=== PATIENT | male | born 1940 | race Hispanic/Latino ===

== ENCOUNTER 2019-08-06 08:07 | Day surgery (SDC) | payer MEDICARE ==
--- NOTE | 2019-08-01 17:01 | RAD REPORT ---
EXAM DESCRIPTION: Reji Zimmer (2 Views)08/01/2019 4:42 pm CLINICAL HISTORY: Preop for hernia surgery COMPARISON: 2014 FINDINGS: The lungs appear clear of acute infiltrate. The heart is normal size IMPRESSION: No acute abnormalities displayed
[2019-08-01 18:09] LABS: Basophils % 0.8 % (0-1.3); Hematocrit 37.9 % (39.6-49.0); Lymphocytes % 28.9 % (15.3-44.8); RBC Red Blood Cell Count 3.79 M/uL (4.33-5.43)
[2019-08-01 18:45] LABS: Potassium 4.1 mmol/L (3.5-5.1)
[2019-08-01 20:12] LABS: Blood Morphology Comment NOT SEEN (NOT SEEN); Platelet Estimate ADEQ
--- NOTE | 2019-08-02 08:52 | EKG ---
Test Date: 2019-08-01 Test Time: 16:39:30 Bench Boring Machine Operator: SILVIO MEASUREMENT RESULTS: Intervals: Rate: 63 [place]: 148 QRSD: 146 QT: 444 QTc: 454 [place]: P: 42 [place]: 148 QRS: -86 T: -39 INTERPRETIVE STATEMENTS: Normal sinus rhythm Left axis deviation Right bundle branch block Abnormal ECG Compared to ECG 03/18/2005 09:22:00 Left-axis deviation now present Electronically Signed On 08-02-19 08:50:38 CDT by Jalen Maria
--- OUTSIDE RECORDS SUMMARY | 2019-08-06 08:16 | XMS REPORT ---
:1940 Author Organization [employer]Works Care Team Providers Name Role Phone Charity Hollins Provider Role Unavailable Allergies No Known Allergies Problems Problem Type Condition Code Onset Dates Condition Status Problem Erectile dysfunction due to diseases N52.1 Active classified elsewhere Problem Type 2 diabetes mellitus with other E11.69 Active specified complication Medications No Known Medications Results No Known Results Summary Purpose eClinicalWorks Submission
--- OUTSIDE RECORDS SUMMARY | 2019-08-06 08:16 | XMS REPORT ---
:1940 Author Organization [employer] Care Team Providers Name Role Phone FourcheCharity borja Provider Role Unavailable Allergies, Adverse Reactions, Alerts Substance Reaction Event Type N.K.D.A. 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, sequela Assessment Elevated PSA R97.20 Active Assessment Erectile dysfunction due to N52.1 Active diseases classified elsewhere Medications Medication Code Code Instructions Start End Status Dosage System Date Date Levemir [facility] 80871518522 100 UNIT/ML Active as FlexTouch Subcutaneous directed Lisinopril [facility] 02089329638 10 MG Orally Active 1 tablet Once a day GlipiZIDE [facility] 78607054233 5 MG Orally Active 1/2 Tablet Once a day BD Pen Needle [facility] 91952437855 32G X 4 MM Active as Zaynab 2nd Gen directed Timolol Maleate [facility] [address]-45 0.5 % Active 1 drop PF Ophthalmic Once into a day affected eye atorvastatin ND 52281750535 20mg Active 1 tablet by mouth at bedtime Metformin HCl ND 48698945779 1000 MG Orally Active 1 tablet Once a day with a meal Results No Known Results Summary Purpose eClinicalWorks Submission
--- OUTSIDE RECORDS SUMMARY | 2019-08-06 08:16 | XMS REPORT ---
:1940 Author Organization eClinicalWorks Care Team Providers Name Role Phone Dustin Pepper Provider Role Unavailable Allergies, Adverse Reactions, Alerts [...] Start End Status Dosage System Date Date BD Pen Needle [facility] 49235819710 32G X 4 MM Active as Zaynab 2nd Gen directed Timolol Maleate [facility] [address]-33 0.5 % Active 1 drop PF Ophthalmic Once into a day affected eye atorvastatin ND 99415075821 20mg Active 1 tablet by mouth at bedtime Levemir ND 48089060766 100 UNIT/ML Active as FlexTouch Subcutaneous directed Lisinopril ND 51036937624 10 MG Orally Active 1 tablet Once a day GlipiZIDE [facility] 50587172431 5 MG Orally Active 1/2 Tablet Once a day Metformin HCl ND 00451287658 1000 MG Orally Active 1 tablet Once a day with a meal Results No Known Results Summary Purpose eClinicalWorks Submission
[2019-08-06] MEDS ORDERED: NA CHLORIDE 0.9% 1,000 ML ONE ×2 (08:52→13:31)
[2019-08-06] MEDS ORDERED: CEFAZOLIN/SWI 1gm 1 GM/10 ML SYR ONE (08:52)
[2019-08-06] MEDS ORDERED: MIDAZOLAM HCL 2 MG/2 ML INJ ONE (10:29)
[2019-08-06] MEDS ORDERED: FENTANYL CITR 250 MCG/5 ML ONE (10:50)
[2019-08-06] MEDS ORDERED: LIDOCAINE 2% MPF 5 ML VIAL ONE (10:50)
[2019-08-06] MEDS ORDERED: propofoL 200 MG/20 ML VIAL IV ONE (10:50)
[2019-08-06] MEDS ORDERED: ROCURONIUM 50 MG/5 ML VIAL IV ONE (10:50)
[2019-08-06] MEDS ORDERED: dexAMETHasone 10 MG/ML VIAL ONE (10:50)
[2019-08-06] MEDS ORDERED: EPHEDRINE SULF 50 MG/ML VIAL ONE (11:16)
[2019-08-06] MEDS ORDERED: KETOROLAC 30 MG/ML INJ ONE (11:42)
--- NOTE | 2019-08-06 11:53 | P.BOP ---
Preoperative diagnosis: tender right inguinal hernia, tender umbilical hernia Postoperative diagnosis: SAME Primary procedure: 1. Open repair of tender right inguinal hernia with mesh Secondary procedure: 2. Open repair of tender umbilical hernia Community Product Specialist: Juana Laurent) Estimated blood loss: <10cc Specimen: hernia sac , lipoma of cord Findings: see dictation Anesthesia: General Complications: None Implants: medium mesh plug and sheet. Transferred to: Recovery Room
[2019-08-06 12:36] VITALS: O2SAT 98
[2019-08-06 14:34] VITALS: BP 115/78; TEMP 98.1
--- NOTE | 2019-08-06 22:34 | DS ---
Date of Discharge: 08/06/2019 Diagnoses: Right inguinal hernia and umbilical hernia. Procedures: Open repair of tender right inguinal hernia with mesh, open repair of tender umbilical h ernia. Disposition: Home. Activity: As tolerated. No heavy lifting. Followup: Follow up in my office in 1 week. Call for appointment at [phone]. Instructions: Keep the area dry for 48 hours and may shower. Medications: Include Tylenol No. 3 q.4 hours p.r.n. pain. CHRISTINE/JUD Voice ID: [id number] Report ID: [id number]
--- NOTE | 2019-08-06 22:34 | OP ---
Date of Procedure: 08/06/2019 Surgeon: Paras Abdi MD Diagnoses: Tender right inguinal hernia and tender umbilical hernia. Postoperative Diagnoses: Tender right inguinal hernia and tender umbilical hernia. Procedure: 1.Open repair of tender right inguinal hernia with mesh. 2.Open repair of tender umbilical hernia. Specimen: Hernia sac and lipoma of the cord and hernia sac from the inguinal area and from the umbil ical area and lipoma of the cord from the inguinal area. Anesthesia: General plus local. Findings: Patient has right inguinal hernia and also umbilical hernia. The right inguinal hernia sa c could not be done laparoscopically safely due to previous scar tissue present. Complication: None. Indication: This is the case of a 79-year-old patient, comes to us with 2 hernias, right inguinal an d also umbilical hernia. The benefits, alternatives, and risks of laparoscopic versus open repair of right inguinal hernia and open repair of umbilical hernia fully explained to the patient, which incl ude but are not limited to infection, bleeding, damage to adjacent structures as complication, nonhea ling wound, chronic pain, chronic numbness, [place], and even . He also understands this may not rel ieve any symptoms. He might need more than one surgical intervention. He also was explained the nee d most likely use of mesh in the inguinal region. Pros and cons of mesh placement were placed. We d iscussed with the patient and he after hearing the pros and cons, and after answering his questions t o his satisfaction then he did consent for use of mesh. Description Of Procedure: The patient brought to the operating room, placed in supine position. Ane sthesia was done without complication. A time-out was called. The abdomen and inguinal areas were p repped and draped in a sterile fashion. We started first with the inguinal region. We have a prosth etic on the left inguinal region more than 20 years ago. It was reviewed on the CAT scan. Discussed with the urologist and it should be okay to fix the right inguinal hernia since this was large and w as allowing intestines to come in and out. Now, we made an incision in the umbilical region. An inc ision was carried down to anterior rectus sheath. It was opened. The muscle retracted laterally. T he balloon catheter was placed in the area under direct visualization with the camera and we proceede d to inflate the balloon, but we noticed that the peritoneum was too tight. They were half previous surgery although this opposite side still effecting the right side. So at this moment, we will leave it safe to continue laparoscopically so we proceeded to remove the trocars under direct visualizatio n of the area and then closed the anterior rectus sheath that. Then, we proceeded to make an incisio n in the right inguinal region. Incision was carried down to Diana fascia. External oblique aponeu rosis was identified, opened in direction of the fibers to connect to the superficial inguinal ring. The external oblique aponeurosis once open we identified ilioinguinal nerve, iliohypogastric nerve p rotected behind external oblique aponeurosis. Patient was in Trendelenburg position. The [place] wi ll place around the spermatic cord. We identified the hernia sac and carefully identified the hernia sac up to the roots in the deep inguinal ring. Opened no incarcerated bowel, large hernia sac but i t was twist and suture ligated twice with 2-0 Prolene. The vas deferens and the rest of the structur es were protected at all times. We placed a mesh plug sheet on the deep inguinal ring and secured in place with VersaTack, once again, protecting the spermatic cord structures. After that, the patient mesh sheet on the floor of the canal securing that to the pubic tubercle, shelving edge of the ingui nal ligament, and transversalis fascia and the tail was looped around the spermatic cord without stra ngulation. The area was irrigated. At that moment, I proceeded to bring in the inguinal nerve, ilio hypogastric nerve back into the inguinal canal, reconstructed the superficial inguinal ring and close d the external oblique aponeurosis with Prolene making sure the nerves were not included. The area w as irrigated. The Diana's fascia closed with 3-0 chromic and the skin with carolyn. Sponge count a nd instrument counts were correct. At that moment, we went to the umbilical region. Patient has no other hernia in that area. We are trying to use the umbilical incision usually used to obtain laparo scopic and made an extended incision to the umbilical area. We identified the hernia sac removed it from umbilical skin. Umbilical skin was then ligated. The fascia edges were cleaned and then we pro ceeded to close this with multiple sutures of 2-0 Prolene. Patient tolerated the procedure well. Th e skin was closed first with 3-0 chromic in the subcutaneous tissue, and the skin with carolyn. Spon ge count and instrument counts were correct. At the end of the case, testicles were in the scrotum. Patient tolerated procedure well. Patient was sent to recovery in stable condition. CHRISTINE/JUD Voice ID: [id number] Report ID: [id number]
== END 2019-08-06 14:25 | disposition home or self-care (01) ==
LOC: OR 08:07
PROVIDERS: ATTEND Surgery
PROC: 0YU50JZ Supplement Right Inguinal Region with Synthetic Substitute, Open Approach (ICD-10-PCS; principal; 2019-08-06 11:15)
PROC: 0WQF0ZZ Repair Abdominal Wall, Open Approach (ICD-10-PCS; 2019-08-06 11:15)
DX: K40.90 Unilateral inguinal hernia, without obstruction or gangrene, not specified as recurrent (principal); K42.9 Umbilical hernia without obstruction or gangrene; E11.9 Type 2 diabetes mellitus without complications; I10 Essential (primary) hypertension; Z79.4 Long term (current) use of insulin; Z87.891 Personal history of nicotine dependence
CPT/HCPCS: 49505; 49585; 93005; 85025; 80048; 36415; 82947; 88302; 71046; J2704; J2250; J3010; J1100; J0690; J7030 ×2

== ENCOUNTER 2022-07-09 19:28 | Emergency (ER) | payer OTHER ==
--- OUTSIDE RECORDS SUMMARY | 2022-07-09 19:32 | XMS REPORT | Continuity of Care Document ---
:1940 Author Organization [facility] t Address [address] [place] [address] Care Team Providers Name Role Phone Isidro [place] Attending Clinician Unavailable Payers Payer Name Policy Type Policy Number Effective Date Expiration Date S babatunde AARP Medicare 53 [id number] Common Spir it Complete - [facility] Problems Condition Condition Condition Status Onset Resolution Last Treating Co mments Source Name Details Category Date Date Treatment Clinician Date [id number] Erectile Problem Active Comm on dysfunctio Spirit n due to - [facility] diseases [facility] [id number] Type 2 Problem Active Common diabetes Spirit mellitus - [facility] with other [facility] complicati [facility] on Center Allergies, Adverse Reactions, Alerts This patient has no known allergies or adverse reactions. Social History Social Habit Start Date Stop Date Quantity Comments Source History of Tobacco Use Co mmon [facility] Sex Assigned At Com mon [facility] Smoking Status Start Date Stop Date Source Former Smoker 2021-05-07 00:00:00 2021-05-07 00:00:00 Common S pirit [facility] Medications Ordered Filled Start Stop Current Ordering Indication Dosage Frequency Signature Comments Components Source Medication Medication Date Date Medication? Clinician (SIG) Name Name Levemir Levemir Yes Dustin as Common FlexTouch FlexTouch [place] directed [facility] Lisinopril Lisinopril Yes Dustin 1 tablet Common [place] [facility] GlipiZIDE GlipiZIDE Yes Dustin 1/2 Tablet Common [place] [facility] BD Pen BD Pen Yes Dustin as Common Needle Zaynab Needle Zaynab Evgeny directed Spirit 2nd Gen 2nd Gen - [facility] Timolol Timolol Yes Dustin 1 drop Comm on Maleate PF Maleate PF [place] into S pirit affected [facility] eye [facility] atorvastati atorvastati Yes Dustin 1 tablet Common n n Evgeny by mouth Spirit at bedtime [facility] Metformin Metformin Yes Dustin 1 tablet Common HCl HCl Evgeny with a Spirit meal [facility] Levemir Levemir No Levemir FlexTouch FlexTouch FlexTouch 100 UNIT/ML 100 UNIT/ML 100 UNIT/ML BD Pen BD Pen No BD Pen Needle Zaynab Needle Zaynab Needle 2nd Gen 32G 2nd Gen 32G Zaynab 2nd X 4 MM X 4 MM Gen 32G X 4 MM GlipiZIDE 5 GlipiZIDE 5 No QD GlipiZIDE MG MG 5 MG metFORMIN metFORMIN No 1{table QD metFORMIN HCl 1000 MG HCl 1000 MG t_with_ HCl 1000 a_meal} MG Lisinopril Lisinopril No 1{table QD Lisinopril 10 MG 10 MG t} 10 MG atorvastati atorvastati No atorvastat n 20mg n 20mg in 20mg Timolol Timolol No 1{drop_ QD Timolol Maleate PF Maleate PF into_af Maleate PF 0.5 % 0.5 % fected_ 0.5 % eye} Vital Signs Vital Name Observation Time Observation Value Comments Source height 2021-05-07 09:30:00 70 [in_i] [facility] weight 2021-05-07 09:30:00 165.2 [lb_av] [facility] temperature 2021-05-07 09:30:00 97.6 [degF] [facility] bmi 2021-05-07 09:30:00 23.7 kg/m2 [facility] oximetry 2021-05-07 09:30:00 98 % [facility] respiratory rate 2021-05-07 09:30:00 18 /min Comm on [facility] blood pressure 2021-05-07 09:30:00 129 mm[Hg] Common [facility] - systolic [facility] blood pressure 2021-05-07 09:30:00 62 mm[Hg] Common [facility] - diastolic [facility] Procedures This patient has no known procedures. Encounters Start End Encounter Admission Attending Care Care Encounter Source Date/Time Date/Time Type Type Clinicians Facility Department ID 2021-06-17 Outpatient [place], STLMLC STLMLC [id number] Common 14:25:12 Isidro [id number] [facility] 2021-05-07 2021-05-07 [id number] Co mmon 00:00:00 00:00:00 VISIT NEW Spir it PT LEVEL 2 [facility] 2019-06-25 2019-06-25 [place] [id number] Common 10:57:00 10:57:00 t Specialty/U Sp oneyda Specialty rology - [facility] /[facility] 2019-06-19 2019-06-19 [id number] Common 14:10:00 14:10:00 t Specialty/U Sp oneyda Specialty rology - [facility] 2019-06-12 2019-06-12 [facility] [place] [id number] Common 08:45:00 08:45:00 t Specialty/U Sp oneyda Specialty rology - [facility] /[facility] 2019-04-17 2019-04-17 [id number] Common 13:43:00 13:43:00 t Specialty/U Sp oneyda Specialty rology - [facility] /[facility] 2019-04-16 2019-04-16 [facility] [place] [id number] Common 09:30:00 09:30:00 t Specialty/U Sp oneyda Specialty rology - [facility] /Urology Clinic [facility] Results This patient has no known results.
--- NOTE | 2022-07-09 20:40 | ER ---
Nurse's Notes [facility] Name: Austyn Prajapati Age: 82 yrs Sex: Male : 1940 Arrival Date: 07/09/2022 Time: 19:33 Bed 3 [facility] MD: Diagnosis: Presentation: 07/09 20:00 Chief complaint: Patient left the lobby. bb ED Course: 19:33 Patient arrived in ED. jj6 19:43 Anne [place] MD is Attending Physician. sd2 20:38 Patient's name was called from ER lobby. No response. Unable to locate patient. Will bb disposition as left without being seen by a provider. Administered Medications: No medications were administered Outcome: 20:39 Patient left the ED. bb Signatures: Rupinder Sullivan, RN RN Coco Smith jj6 Anne [place] MD MD sd2
== END 2022-07-09 20:39 | disposition left against medical advice (07) ==
LOC: ER 19:28
DX: Z53.21 Procedure and treatment not carried out due to patient leaving prior to being seen by health care provider (principal)
CPT/HCPCS: 99281

== ENCOUNTER 2022-10-31 21:26 | Inpatient (IN) | payer OTHER ==
--- OUTSIDE RECORDS SUMMARY | 2022-10-31 21:29 | XMS REPORT | Continuity of Care Document ---
:1940 Author Organization [facility] t Address [address] [place] [address] Care Team Providers Name Role Phone Isidro [place] Attending Clinician Unavailable Payers Payer Name Policy Type Policy Number Effective Date Expiration Date S babatunde AARP Medicare 53 [id number] Common Spir it Complete [facility] Problems Condition Condition Condition Status Onset Resolution Last Treating Co mments Source Name Details Category Date Date Treatment Clinician Date [id number] Erectile Problem Active Comm on dysfunctio Spirit n due to - [facility] diseases [facility] [id number] Type 2 Problem Active Common diabetes Spirit mellitus - [facility] with other [facility] complicati Medica [facility] on Center Allergies, Adverse Reactions, Alerts This patient has no known allergies or adverse reactions. Social History Social Habit Start Date Stop Date Quantity Comments Source History of Tobacco Use Co mmon [facility] Sex Assigned At Com mon [facility] Smoking Status Start Date Stop Date Source Former Smoker 2021-05-07 00:00:00 2021-05-07 00:00:00 Common S pirit [facility] Medications Ordered Filled Start Stop Current Ordering Indication Dosage Frequency Signature Comments Components Source Medication Medication Date Date Medication? Clinician (SIG) Name Name Levemir Levemir Yes Dustin as Common FlexTouch FlexTouch [place] directed [facility] Lisinopril Lisinopril Yes Dustin 1 tablet Common [place] Spirit [facility] GlipiZIDE GlipiZIDE Yes Dustin 1/2 Tablet Common Evgeny Spirit [facility] BD Pen BD Pen Yes Dustin as Common Needle Zaynab Needle Zaynab Evgeny directed Spirit 2nd Gen 2nd Gen - [facility] Timolol Timolol Yes Dustin 1 drop Comm on Maleate PF Maleate PF Evgeny into S pirit affected [facility] eye [facility] atorvastati atorvastati Yes Dustin 1 tablet Common n n [place] by mouth Spirit at bedtime [facility] Metformin Metformin Yes Dustin 1 tablet Common HCl HCl Evgeny with a Spirit meal [facility] Levemir Levemir No Levemir FlexTouch FlexTouch FlexTouch [...] Comments Source height 2021-05-07 09:30:00 70 [in_i] [facility] weight 2021-05-07 09:30:00 165.2 [lb_av] [facility] temperature 2021-05-07 09:30:00 97.6 [degF] [facility] bmi 2021-05-07 09:30:00 23.7 kg/m2 [facility] oximetry 2021-05-07 09:30:00 98 % [facility] respiratory rate 2021-05-07 09:30:00 18 /min Comm on [facility] blood pressure 2021-05-07 09:30:00 129 mm[Hg] Common [facility] - systolic [facility] blood pressure 2021-05-07 09:30:00 62 mm[Hg] Common [facility] - diastolic [facility] Procedures This patient has no known procedures. Encounters Start End Encounter Admission Attending Care Care Encounter Source Date/Time Date/Time Type Type Clinicians Facility Department ID 2021-06-17 Outpatient [place], STLMLC STLMLC [id number] Common 14:25:12 Isidro [id number] [facility] 2021-05-07 2021-05-07 [facility] [id number] Co mmon 00:00:00 00:00:00 VISIT NEW Spir it PT LEVEL 2 [facility] 2019-06-25 2019-06-25 Outpatient [facility] [id number] Common 10:57:00 10:57:00 t Specialty/U Sp oneyda Specialty rology - [facility] /[facility] 2019-06-19 2019-06-19 [id number] Common 14:10:00 14:10:00 t Specialty/U Sp oneyda Specialty rology - [facility] /[facility] 2019-06-12 2019-06-12 [facility] [place] [id number] Common 08:45:00 08:45:00 t Specialty/U Sp oneyda Specialty rology - [facility] /[facility] 2019-04-17 2019-04-17 [id number] Common 13:43:00 13:43:00 t Specialty/U Sp oneyda Specialty rology - [facility] 2019-04-16 2019-04-16 [facility] [place] [id number] Common 09:30:00 09:30:00 t Specialty/U Sp oneyda Specialty rology - [facility] /Urology Clinic [facility] Results This patient has no known results.
--- NOTE | 2022-10-31 22:24 | RAD REPORT ---
EXAM DESCRIPTION: Reji Single View10/31/2022 10:02 pm CLINICAL HISTORY: cough COMPARISON: 2019 FINDINGS: Left upper lobe is hazy. Right lung appears clear. Heart is normal size IMPRESSION: Left upper lobe is hazy which could be secondary to overlying soft tissue as the patient is rotated. An infiltrate or nodule is another consideration. CT chest is recommended
[2022-10-31] MEDS ORDERED: CEFTRIAXONE 1000 MG/VIAL ONE (22:31)
[2022-10-31] MEDS ORDERED: NA CHLORIDE 0.9% 1,000 ML ONE (22:31)
[2022-10-31] MEDS ORDERED: ACETAMINOPHEN 500 MG TAB ONE (22:31)
[2022-10-31 22:38] LABS: Absolute Lymphocytes (CBC) 1.2 K/uL (0.7-4.9); Hematocrit 34.5 % (39.6-49.0); Lymphocytes % 7.8 % (15.3-44.8); MCV 99.8 fL (80-100); MPV 6.8 fL (7.6-11.3); RBC Red Blood Cell Count 3.45 M/uL (4.33-5.43)
[2022-10-31 22:43] LABS: Protime INR 1.14
[2022-10-31 22:49] LABS: Albumin 3.5 g/dL (3.4-5.0); Bilirubin Total 0.5 mg/dL (0.2-1.0); Potassium 4.5 mEq/L (3.5-5.1); Protein, Total 7.7 g/dL (6.4-8.2)
[2022-10-31 22:53] LABS: SARS-CoV-2 Antigen Rapid Res Negative (Negative)
[2022-11-01 00:10] LABS: Renal Epithelial <5 /HPF (None Seen); Specific Gravity 1.017 (1.005-1.030); Urine Bacteria None Seen /HPF (<20); Urine Bilirubin NEGATIVE (Negative); Urine Blood 2+ (Negative); Urine Clarity Extremely Turbid (Clear); Urine Color Light-Yellow (Yellow); Urine Glucose 3+ (Negative); Urine Mucus 1+ /HPF (None Seen); Urine Protein 1+ (Negative); Urine RBC >50 /HPF (None Seen); Urine Urobilinogen Normal (Normal); Urine WBC Clump Rare /HPF (None Seen); Urine pH 5.5 (5.0-7.0)
--- NOTE | 2022-11-01 00:50 | ER ---
Nurse's Notes [facility] Name: Austyn Prajapati Age: 82 yrs Sex: Male : 1940 Arrival Date: 10/31/2022 Time: 21:26 Bed 19 Private MD: Diagnosis: UTI/ Urinary tract infection, site not specified;Sepsis, unspecified organism Presentation: 10/31 21:57 Chief complaint: Spouse and/or significant other states: fever, increased confusion and lg3 weakness starting this morning. denies pain. Coronavirus screen: Client denies travel out of the [place] in the last 14 days. Client presents with at least one sign or symptom that may indicate coronavirus-19. Standard/surgical mask placed on the client. Ebola Screen: No symptoms or risks identified at this time. No acute neurological deficit is noted. Initial Sepsis Screen: Does the patient meet any 2 criteria? Temp <36.0*C (96.8*F)) or > 38.3*C (100.9*F). Altered Mental Status. Yes Does the patient have a suspected source of infection? No. Patient's initial sepsis screen is negative. Risk Assessment: Do you want to hurt yourself or someone else? Patient reports no desire to harm self or others. Onset of symptoms was October 31, 2022. 21:57 Method Of Arrival: Wheelchair lg3 21:57 Acuity: PARVIN 3 lg3 Triage Assessment: 22:04 General: Appears in no apparent distress. comfortable, Behavior is calm, cooperative. lg3 Pain: Denies pain. EENT: No deficits noted. No signs and/or symptoms were reported regarding the EENT system. Neuro: No deficits noted. Epstien Agitation-Sedation Scale (RASS): 0 - Alert and Calm Level of Consciousness is awake, alert, obeys commands, Oriented to person, place, situation. Cardiovascular: No deficits noted. Denies chest pain, shortness of breath, Capillary refill < 3 seconds Clubbing of nail beds is absent JVD is absent Patient's skin is warm and dry. Respiratory: No deficits noted. Airway is patent Respiratory effort is even, unlabored, Respiratory pattern is regular, symmetrical. GI: No deficits noted. No signs and/or symptoms were reported involving the gastrointestinal system. Abdomen is flat, non-distended. : No deficits noted. No signs and/or symptoms were reported regarding the genitourinary system. Derm: No signs and/or symptoms reported regarding the dermatologic system. Skin is intact, is thin, Skin is dry, Skin is normal, Skin temperature is hot. Musculoskeletal: Parent/caregiver report the patient having generalized weakness. Historical: - Allergies: 22:04 No Known Allergies; lg3 - PMHx: 22:04 Dementia; diabetes mellitus; lg3 - PSHx: 22:04 None; lg3 - Immunization history:: Adult Immunizations up to date, Client reports receiving the 2nd dose of the Covid vaccine. - Social history:: Smoking status: Patient denies any tobacco usage or history of. Patient/guardian denies using alcohol, street drugs. Screenin:06 [facility] ED Fall Risk Assessment (Adult) History of falling in the last 3 months, lg3 including since admission No falls in past 3 months (0 pts). Abuse screen: Denies threats or abuse. Denies injuries from another. Nutritional screening: No deficits noted. Tuberculosis screening: No symptoms or risk factors identified. Assessment: 22:05 General: see triage assessment . lg3 22:57 Reassessment: Patient appears in no apparent distress at this time. No changes from lg3 previously documented assessment. Patient and/or family updated on plan of care and expected duration. Pain level reassessed. Patient is alert, oriented x 3, equal unlabored respirations, skin warm/dry/pink. Patient denies pain at this time. /12 00:18 Reassessment: Patient appears in no apparent distress at this time. No changes from lg3 previously documented assessment. Patient and/or family updated on plan of care and expected duration. Pain level reassessed. Patient is alert, oriented x 3, equal unlabored respirations, skin warm/dry/pink. Patient denies pain at this time. 01:11 General: Son: Jarad Prajapati [phone] : Adore Prajapati [phone] Son: Payam Prajapati [facility] [phone]. 07:10 Reassessment: patient had multiple blankets on when assessing vitals. nurse removed ap3 blanket and left patient with loose sheet. 07:42 General: nurse attempted report. was informed the receiving nurse would return my call. ap3 08:20 General: report given to NICOLE Victor. ap3 Vital Signs: 10/31 21:57 BP 131 / 62; Pulse 87; Resp 19 S; Temp 102(O); Pulse Ox 98% on R/A; Weight 79.38 kg lg3 (R); Height 5 ft. 9 in. (R); 22:57 BP 134 / 63; Pulse 83; Resp 20 S; Pulse Ox 98% on R/A; lg3 23:59 Temp 100; lg3 11/01 00:19 BP 126 / 48; Pulse 68; Resp 19 S; Pulse Ox 96% on R/A; lg3 07:13 BP 117 / 54; Pulse 84; Resp 19; Temp 102.3(O); Pulse Ox 94% ; ap3 08:13 BP 115 / 56 LA; Pulse 82; Temp 101.7(O); ap3 10/31 21:57 Body Mass Index 25.84 (79.38 kg, 175.26 cm) lg3 08:13 after removing blankets ap3 ED Course: 10/31 21:37 Patient arrived in ED. ja2 21:47 Mirza Campoverde MD is Attending Physician. bs3 21:56 Quita Carlisle, NICOLE is Primary Nurse. lg3 21:59 Triage completed. lg3 22:04 Chest Single View XRAY In Process Unspecified. EDMS 22:04 Arm band placed on right wrist. lg3 22:06 Patient has correct armband on for positive identification. Placed in gown. Bed in low lg3 position. Call light in reach. Side rails up X2. Client placed on continuous cardiac and pulse oximetry monitoring. NIBP monitoring applied. quality assurance monitor final on. Door closed. Noise minimized. Family accompanied patient. 22:20 Influenza Screen (a \T\ B) Sent. lg3 22:20 SARS-COV-2 Antigen Rapid Sent. lg3 22:20 Blood Culture Adult (2) Sent. lg3 22:20 CBC with Diff Sent. lg3 22:20 CMP Sent. lg3 22:20 Lactate w/ 2H reflex if indic. Sent. lg3 22:20 Protime (+inr) Sent. lg3 22:20 Ptt, Activated Sent. lg3 22:20 Inserted saline lock: 20 gauge in right antecubital area, using aseptic technique. rv1 Blood collected. 23:14 CT Chest Wo Con In Process Unspecified. EDMS 23:59 Urinalysis W/Microscopic Sent. lg3 11/01 00:49 Suresh Guadarrama MD is Hospitalizing Provider. bs3 05:24 No provider procedures requiring assistance completed. Patient admitted, IV remains in lg3 place. No redness/swelling at site. Administered Medications: 10/31 22:33 Drug: Acetaminophen PO 1000 mg Route: PO; lg3 11/01 00:20 Follow up: Response: No adverse reaction; Marked relief of symptoms; Temperature is lg3 decreased 10/31 22:33 Drug: NS 0.9% IV 1000 ml Route: IV; Rate: 1000 ml; Site: right antecubital; lg3 11/01 00:19 Follow up: Response: No adverse reaction; IV Status: Completed infusion; IV Intake: lg3 1000ml 10/31 22:33 Drug: Rocephin IV 1 grams Route: IV; Rate: 1 bolus; Site: right antecubital; lg3 11/01 05:25 Follow up: Response: No adverse reaction; IV Status: Completed infusion; IV Intake: [id number] 00:58 Drug: NS 0.9% IV 1000 ml Route: IV; Rate: 1000 ml; Site: right antecubital; lg3 05:25 Follow up: IV Status: Completed infusion; IV Intake: 1000ml lg3 Medication: 05:24 VIS not applicable for this client. lg3 Intake: 00:19 IV: 1000ml; Total: 1000ml. lg3 05:25 IV: 10ml; Total: 1010ml. lg3 05:25 IV: 1000ml; Total: 2010ml. lg3 Outcome: 00:49 Decision to Hospitalize by Provider. bs3 05:24 Admitted to ER Hold. Please see [facility] for further documentation. lg3 05:24 Condition: stable 05:24 Instructed on the need for admit. 08:55 Patient left the ED. ap3 Signatures: Dispatcher [employer] EDMS Genna Hensley RN RN ap3 Quita Carlisle RN RN lg3 Silke Jones Brandon, MD MD bs3 Wendy Sibley1
--- NOTE | 2022-11-01 00:51 | EDPHYS ---
Physician Documentation [facility] Name: Austyn Prajapati Age: 82 yrs Sex: Male : 1940 Arrival Date: 10/31/2022 Time: 21:26 Bed 19 Private MD: ED Physician Mirza Campoverde HPI: 10/31 21:56 This 82 yrs old Male presents to ER via Unassigned with complaints of bs3 Weakness, Confusion, feeling warm. 21:56 82-year-old male history of mild dementia, diabetes presents with increasing confusion bs3 and lethargy today he has generally been well otherwise and then today felt weak and tired he denies any cough abdominal pain or anything else bothering him per family at bedside he is not acting himself and just a little bit more confused than normal he normally is able to ambulate but now is a little bit more weak. Historical: - Allergies: 22:04 No Known Allergies; lg3 - PMHx: 22:04 Dementia; diabetes mellitus; lg3 - PSHx: 22:04 None; lg3 - Immunization history:: Adult Immunizations up to date, Client reports receiving the 2nd dose of the Covid vaccine. - Social history:: Smoking status: Patient denies any tobacco usage or history of. Patient/guardian denies using alcohol, street drugs. ROS: 22:00 Constitutional: Negative for fever, chills bs3 22:00 All other systems are negative. Exam: 22:00 Constitutional: This is a well developed, well nourished patient who is awake, alert, bs3 and in no acute distress. Head/Face: Normocephalic, atraumatic. Eyes: Pupils equal round and reactive to light, extra-ocular motions intact. Lids and lashes normal. ENT: mmm, no posterior phyarngeal erythema Neck: Trachea midline, no thyromegaly, no neck stiffness Chest/axilla: Normal chest wall appearance and motion. Nontender with no deformity. No lesions are appreciated. Cardiovascular: Regular rate and rhythm with a normal S1 and S2. symmetric pulses in upper extremities Respiratory: Lungs have equal breath sounds bilaterally, clear to auscultation, no respiratory distress Abdomen/GI: Soft, non-tender, no rebound or guarding Back: No spinal tenderness. No costovertebral tenderness. Full range of motion. Skin: Warm, dry with normal turgor. Normal color with no rashes, no lesions, and no evidence of cellulitis. MS/ Extremity: Pulses equal, no cyanosis. Neurovascular intact. Full, normal range of motion. Neuro: Awake and alert, GCS 15, oriented to person, place, Cranial nerves II-XII grossly intact. Motor strength 5/5 in all extremities. Sensory grossly intact. Psych: Awake, alert, with orientation to person, place and time. Behavior, mood, and affect are within normal limits. Vital Signs: 21:57 BP 131 / 62; Pulse 87; Resp 19 S; Temp 102(O); Pulse Ox 98% on R/A; Weight 79.38 kg lg3 (R); Height 5 ft. 9 in. (R); 22:57 BP 134 / 63; Pulse 83; Resp 20 S; Pulse Ox 98% on R/A; lg3 23:59 Temp 100; lg3 11/01 00:19 BP 126 / 48; Pulse 68; Resp 19 S; Pulse Ox 96% on R/A; lg3 07:13 BP 117 / 54; Pulse 84; Resp 19; Temp 102.3(O); Pulse Ox 94% ; ap3 08:13 BP 115 / 56 LA; Pulse 82; Temp 101.7(O); ap3 06/ 21:57 Body Mass Index 25.84 (79.38 kg, 175.26 cm) lg3 08:13 after removing blankets ap3 MDM: 10/31 21:47 Patient medically screened. bs3 22:00 Data reviewed: vital signs, nurses notes. ED course: I personally took the patient's bs3 temperature as they felt warm at bedside and it was 102.0 we will check labs give IV fluids and reassess, will evaluate for sepsis. . 11/01 00:15 ED course: pt found to have elevated lactate, given IVF and antibiotics, will admit for bs3 sepsis 2/2 uti. 02:09 ED course: Normal sinus rhythm at 84 right bundle branch block QTc 439 as interpreted bs3 by myself. 10/31 21:54 Order name: Blood Culture Adult (2) bs3 10/31 21:54 Order name: CBC with Diff; Complete Time: 22:56 bs3 10/31 21:54 Order name: CMP; Complete Time: 22:56 bs3 10/31 21:54 Order name: Lactate w/ 2H reflex if indic.; Complete Time: 23:06 3 10/31 21:54 Order name: Protime (+inr); Complete Time: 22:46 bs3 10/31 21:54 Order name: Ptt, Activated; Complete Time: 22:46 3 10/31 21:54 Order name: SARS-COV-2 Antigen Rapid; Complete Time: 22:56 3 10/31 21:54 Order name: Influenza Screen (a \T\ B); Complete Time: 22:56 bs3 10/31 21:54 Order name: Urinalysis W/Microscopic; Complete Time: 00:12 bs3 11/01 00:14 Order name: Urine Culture EDDC 11/01 01:50 Order name: Lactate Sepsis 2 HR Follow-up EDDC 11/01 04:29 Order name: CBC with Automated Diff EDMS 11/01 04:36 Order name: Basic Metabolic Panel EDDC 11/01 07:47 Order name: Glucose, Ancillary Testing EDDC 10/31 21:54 Order name: Chest Single View XRAY; Complete Time: 22:26 3 10/31 22:46 Order name: CT Chest Wo Con bs3 10/31 21:54 Order name: EKG; Complete Time: 21:55 3 10/31 21:54 Order name: Accucheck; Complete Time: 22:07 3 10/31 21:54 Order name: Cardiac monitoring; Complete Time: 22:06 3 10/31 21:54 Order name: EKG - Nurse/Tech; Complete Time: 22:20 3 10/31 21:54 Order name: IV Saline Lock - Large Bore; Complete Time: 22:20 3 10/31 21:54 Order name: Labs collected and sent; Complete Time: 22:20 3 10/31 21:54 Order name: O2 Per Protocol; Complete Time: 22:06 3 10/31 21:54 Order name: O2 Sat Monitoring; Complete Time: 22:06 3 10/31 21:54 Order name: Vital Signs; Complete Time: 22:06 bs3 Administered Medications: 10/31 22:33 Drug: Acetaminophen PO 1000 mg Route: PO; lg3 11/01 00:20 Follow up: Response: No adverse reaction; Marked relief of symptoms; Temperature is lg3 decreased 10/31 22:33 Drug: NS 0.9% IV 1000 ml Route: IV; Rate: 1000 ml; Site: right antecubital; lg3 11/01 00:19 Follow up: Response: No adverse reaction; IV Status: Completed infusion; IV Intake: lg3 1000ml 10/31 22:33 Drug: Rocephin IV 1 grams Route: IV; Rate: 1 bolus; Site: right antecubital; lg3 11/01 05:25 Follow up: Response: No adverse reaction; IV Status: Completed infusion; IV Intake: [id number] 00:58 Drug: NS 0.9% IV 1000 ml Route: IV; Rate: 1000 ml; Site: right antecubital; lg3 05:25 Follow up: IV Status: Completed infusion; IV Intake: 1000ml lg3 Disposition Summary: 11/01/22 00:49 Hospitalization Ordered Hospitalization Status: Inpatient Admission bs3 Provider: Suresh Guadarrama bs3 Condition: Stable bs3 Problem: new bs3 Symptoms: have improved bs3 Bed/Room Type: Standard bs3 Location: Telemetry/MedSurg (Inpatient)(11/01/22 07:01) ja1 Room Assignment: 219(11/01/22 07:01) [facility] Diagnosis - UTI/ Urinary tract infection, site not specified bs3 - Sepsis, unspecified organism bs3 Forms: - Medication Reconciliation Form bs3 - SBAR form bs3 Signatures: Dispatcher [employer] EDMS Irwin Mejia, PI/SENIOR RESEARCH ASSOCIATE-C PI/SENIOR RESEARCH ASSOCIATE-Cla1 Dayanara Perrin RN RN Daren Garcia RN RN 1 Quita Carlisle RN RN lg3 Mirza Campoverde MD MD bs3 Corrections: (The following items were deleted from the chart) 10/31 22:14 21:54 Urinalysis+U.LAB.BRZ ordered. EDDC EDMS 11/01 01:43 00:49 Telemetry/MedSurg (Inpatient) bs3 cg 01:43 00:49 bs3 07:01 01:43 [facility] [[email or web address]] ER HOLD cg ja1 07:01 01:43 ERHOLD- cg ja
[2022-11-01] MEDS ORDERED: NA CHLORIDE 0.9% 2,000 ML ONE (00:53)
--- NOTE | 2022-11-01 00:55 | P.HP ---
Certification for Inpatient Patient admitted to: Inpatient With expected LOS: >2 Midnights Patient will require the following post-hospital care: None Practitioner: I am a practitioner with admitting privileges, knowledge of patient current condition, hospital course, and medical plan of care. Services: Services provided to patient in accordance with Admission requirements found in Title 42 Section 412.3 of the Code of Federal Regulations <Irwin Mejia - Last Filed: 11/01/22 00:50> Patient History Date of Service: 11/01/22 Reason for admission: UTI, severe sepsis History of Present Illness: 82-year-old male with history of insulin-dependent diabetes, dementia, hypertension presents to the emergency department with chief complaint of fever. Family reports he began having chills this afternoon denied any other symptoms. He was evaluated in the emergency department his labs were significant for leukocytosis white blood cell count 15.6 lactic acid 2.5 creatinine 1.54 sodium 132 glucose 271 urinalysis extremely turbid 4+ leuk esterase urine white blood cell greater than 50 urine red blood cell greater than 50. CT of the chest was performed which showed cholelithiasis, no acute chest findings. Patient with no abdominal tenderness LFTs within normal limits doubt cholecystitis. Blood and urine cultures obtained. He will be admitted for severe sepsis, UTI. - Past Medical/Surgical History Diabetic: Yes -: DM -: Dementia -: Hypertension -: fell fm 7ft /broken pelvis 2000 Psychosocial/ Personal History: Lives at home with - Family History Family History: Reviewed- Non-Contributory - Social History Alcohol use: No CD- Drugs: No Caffeine use: Yes Place of Residence: Home <Irwin Mejia - Last Filed: 11/01/22 00:50> Date of Service: 11/01/22 <Suresh Guadarrama - Last Filed: 11/01/22 19:43> Allergies No Known Allergies Allergy (Verified 08/01/19 17:30) Home Medications: Insulin Detemir [Levemir Flextouch] 28 units SUBQ BREAKFAST 01/05/15 Metformin HCl 1,000 mg PO DAILY 01/05/15 Atorvastatin Calcium 20 mg PO DAILY 08/01/19 Glipizide [Glipizide ER] 5 mg PO DAILY 08/01/19 Lisinopril [Zestril] 10 mg PO DAILY 08/01/19 Timolol 0.5% Opth [Timoptic 0.5% Opth*] 50 drops OPTH DAILY 08/01/19 Ciprofloxacin HCl [Cipro 500 MG Tablet] 500 mg PO BID #12 tab 08/06/19 Codeine/APAP [Tylenol W/Codeine #3 tab] 1 tab PO Q4HP PRN #30 tab 08/06/19 Review of Systems 10-point ROS is otherwise unremarkable General: Fever, Chills <Irwin Mejia - Last Filed: 11/01/22 00:50> Physical Examination - Physical Exam General: Alert, In no apparent distress, Oriented x3 HEENT: Atraumatic, PERRLA, Mucous membr. moist/pink, EOMI, Sclerae nonicteric Neck: Supple, 2+ carotid pulse no bruit, No LAD, Without JVD or thyroid abnormality Respiratory: Clear to auscultation bilaterally, Normal air movement Cardiovascular: Regular rate/rhythm, Normal S1 S2 Capillary refill: <2 Seconds Gastrointestinal: Normal bowel sounds, No tenderness Musculoskeletal: No tenderness Integumentary: No rashes Neurological: Normal speech, Normal strength at 5/5 x4 extr, Normal tone, Normal affect - Studies Laboratory Data (last 24 hrs) 10/31/22 22:13: PT 12.5, INR 1.14, APTT 30.7 10/31/22 22:13: Sodium 132 L, Potassium 4.5, BUN 21 H, Creatinine 1.54 H, Glu cose 271 H, Total Bilirubin 0.5, AST 10 L, ALT 17, Alkaline Phosphatase 121 H 10/31/22 22:13: WBC 15.60 H, Hgb 11.7 L, Hct 34.5 L, Plt Count 221 Microbiology Data (last 24 hrs): 10/31/22 22:18 Nasopharnyx Influenza Type A Antigen Screen - Final 10/31/22 22:18 Nasopharnyx Influenza Type B Antigen Screen - Final <Irwin Mejia - Last Filed: 11/01/22 00:50> - Studies Laboratory Data (last 24 hrs) 10/31/22 22:13: PT 12.5, INR 1.14, APTT 30.7 10/31/22 22:13: Sodium 132 L, Potassium 4.5, BUN 21 H, Creatinine 1.54 H, Glucose 271 H, Total Bilirubin 0.5, AST 10 L, ALT 17, Alkaline Phosphatase 121 H 10/31/22 22:13: WBC 15.60 H, Hgb 11.7 L, Hct 34.5 L, Plt Count 221 Microbiology Data (last 24 hrs): 10/31/22 22:18 Nasopharnyx Influenza Type A Antigen Screen - Final 10/31/22 22:18 Nasopharnyx Influenza Type B Antigen Screen - Final <Suresh Guadarrama - Last Filed: 11/01/22 19:43> Assessment and Plan - Plan Assessment: Severe sepsis secondary to UTI Diabetes mellitus type 2insulin-dependent with hyperglycemia Hypertension Plan: Severe sepsis secondary to UTI Fever started yesterday around noon Tmax 102. His ROS is negative no abdominal tenderness. Urine shows urinary tract infection. CT chest negative for acute findings does show cholelithiasis, no right upper quadrant tenderness noted. Radiology did not comment on kidneys but I do not see any gross hydronephrosis or stranding. Continue IV Rocephin, blood and urine cultures obtained. Repeat lactate. Diabetes mellitus type 2insulin-dependent with hyperglycemia ACHS Accu-Chek, sliding scale insulin. Hypertension Hold oral antihypertensives in the setting of sepsis, restart when appropriate. DVT PPX: Lovenox Code status: Full Discharge Plan: Home Plan to discharge in: Greater than 2 days - Advance Directives Does patient have a Living Will: No Does patient have a Durable POA for Healthcare: No - Code Status/Comfort Care Code Status Assessed: Yes (Full code) Critical Care: No Time Spent Managing Pts Care (In Minutes): 55 <Irwin Mejia - Last Filed: 11/01/22 00:50> - Plan Agree with plan of care as noted above. f/u cultures continue empiric antibiotics <Surseh Guadarrama - Last Filed: 11/01/22 19:43>
[2022-11-01] MEDS: NA CHLORIDE 0.9% 1,000 ML IV SCH ×4 (01:51→21:51)
[2022-11-01] MEDS ORDERED: ONDANSETRON 4 MG/2 ML VIAL IV PRN (01:51)
[2022-11-01 04:24] LABS: Absolute Lymphocytes (CBC) 1.4 K/uL (0.7-4.9); Lymphocytes % 9.5 % (15.3-44.8); MCV 99.4 fL (80-100); MPV 6.8 fL (7.6-11.3); RBC Red Blood Cell Count 3.12 M/uL (4.33-5.43)
[2022-11-01 04:34] LABS: Potassium 4.6 mEq/L (3.5-5.1)
[2022-11-01] MEDS ORDERED: PNEUMOCOCCAL VACCINE 0.5 ML IMVAC ONE (08:00)
[2022-11-01] MEDS: INSULIN -REGULAR HUMAN 50 UNIT/0.5 ML ML SQ SCH ×4 (09:23→22:12)
[2022-11-01] MEDS: HEPARIN 5000 UNIT/ML 1 ML VIAL SQ SCH ×2 (09:30→21:00)
[2022-11-01] MEDS: ACETAMINOPHEN 500 MG TAB PO PRN ×2 (10:47→17:10)
--- NOTE | 2022-11-01 12:02 | EKG ---
Test Date: 2022-10-31 Test Time: 22:14:57 Medicare Nurse: DEJUAN MEASUREMENT RESULTS: Intervals: Rate: 84 MO: 174 QRSD: 132 QT: 372 QTc: 439 [place]: P: 111 MO: 174 QRS: -40 T: 44 INTERPRETIVE STATEMENTS: Normal sinus rhythm Left axis deviation Right bundle branch block Septal infarct, age undetermined Abnormal ECG Compared to ECG 08/01/2019 16:39:30 Myocardial infarct finding now present Electronically Signed On 11-01-22 12:00:24 CDT by Jalen Maria
--- NOTE | 2022-11-01 12:28 | RAD REPORT ---
EXAM DESCRIPTION: Thorax W/O Contrast CLINICAL HISTORY: Eval left upper lob TECHNIQUE: Contiguous axial images obtained through the chest without IV contrast. Coronal and sagit uyen reformatted images provided. This exam was performed according to our departmental dose-optimization program, which includes autom ated exposure control, adjustment of the mA and/or kV according to patient size and/or use of iterati ve reconstruction technique. COMPARISON: Prior studies are not available for comparison FINDINGS: Lungs: No focal consolidation. Airways are patent. Calcified granuloma in the left lower lobe. Scattered tiny subpleural nodularities measuring less than 2 mm for which no routine follow-up imagin g is recommended. Minimal pleuroparenchymal scarring in the lung bases. Pleura: No effusion. No pneumothorax. Heart and pericardium: The heart is normal in size. Prominent coronary atherosclerotic calcification. No pericardial effusion. Mediastinum and aubrey: Calcified left hilar node Lower neck and chest wall: Unremarkable Vessels: Unremarkable Upper abdomen: Cholelithiasis. Bones: Unremarkable IMPRESSION: 1. No acute findings in the chest. Evidence of old granulomatous disease. 2. Prominent coronary atherosclerotic calcification. 3. Cholelithiasis. Electronically signed by: Daren Amor MD 10/31/2022 11:31 PM CDT Due to temporary technical issues with the PACS/Fluency reporting system, reports are being signed by the in house radiologist without review as a courtesy to ensure prompt reporting. The interpreting r adiologist is fully responsible for the content of the report.
[2022-11-01] MEDS ORDERED: CEFTRIAXONE 1,000 MG in NA CHLORIDE 0.9% 50 ML IVPB SCH (20:00)
[2022-11-02 02:02] VITALS: BMI 25.9
[2022-11-02 03:41] LABS: Absolute Lymphocytes (CBC) 1.1 K/uL (0.7-4.9); Hematocrit 27.5 % (39.6-49.0); Lymphocytes % 6.8 % (15.3-44.8); MCV 99.7 fL (80-100); MPV 7.1 fL (7.6-11.3); RBC Red Blood Cell Count 2.76 M/uL (4.33-5.43)
[2022-11-02 04:12] LABS: Potassium 3.6 mEq/L (3.5-5.1)
[2022-11-02] MEDS: NA CHLORIDE 0.9% 1,000 ML IV SCH ×4 (04:17→17:51)
[2022-11-02] MEDS: ACETAMINOPHEN 500 MG TAB PO PRN ×3 (04:29→21:46)
[2022-11-02] MEDS: INSULIN -REGULAR HUMAN 50 UNIT/0.5 ML ML SQ SCH ×4 (07:30→21:47)
[2022-11-02] MEDS: HEPARIN 5000 UNIT/ML 1 ML VIAL SQ SCH ×2 (09:05→21:46)
[2022-11-02] MEDS: CEFEPIME 2 GM in NA CHLORIDE 0.9% 100 ML IV SCH ×2 (09:55→21:46)
--- NOTE | 2022-11-02 16:05 | P.PN ---
Subjective Date of Service: 11/02/22 Chief Complaint: UTI, severe sepsis Patient has no new complaint. He has been experiencing intermittent fever He has been tolerating his diet. Physical Examination - Vital Signs Temperature: 100.3 F Blood Pressure: 116/56 Pulse: 67 Respirations: 14 Pulse Ox (%): 96 - Studies Microbiology Data (last 24 hrs): 10/31/22 22:13 Blood - Blood Blood Culture Gram Stain - Final 10/31/22 22:13 Blood - Blood Gram Stain - Final 10/31/22 22:13 Blood - Blood Gram Stain - Final Assessment And Plan - Plan Physical Exam General: Alert, In no apparent distress, Oriented x3 HEENT: Atraumatic, PERRLA, Mucous membr. moist/pink, EOMI, Sclerae nonicteric Neck: Supple, 2+ carotid pulse no bruit, No LAD, Without JVD or thyroid abnormality Respiratory: Clear to auscultation bilaterally, Normal air movement Cardiovascular: Regular rate/rhythm, Normal S1 S2 Capillary refill: <2 Seconds Gastrointestinal: Normal bowel sounds, No tenderness Musculoskeletal: No tenderness Integumentary: No rashes Neurological: Normal speech, Normal strength at 5/5 x4 extr, Normal tone, Normal affect Plan Assessment: Severe sepsis secondary to UTI Diabetes mellitus type 2insulin-dependent with hyperglycemia Hypertension Plan: Severe sepsis secondary to UTI UA suggest UTI. CT chest negative for acute findings does show cholelithiasis but no physical evidence of cholecystitis. He has been experiencing intermittent fever. Blood culture is growing gram-positive cocci. Add vancomycin given intermittent fever. Change IV Rocephin to cefepime. Urine culture is pending. Follow cultures. Diabetes mellitus type 2insulin-dependent with hyperglycemia ACHS Accu-Chek, sliding scale insulin. Resume home dose Lantus insulin given severe hyperglycemia. Hypertension Hold oral antihypertensives in the setting of sepsis, restart when appropriate. DVT PPX: Lovenox Code status: Full Discharge Plan: Home
[2022-11-02] MEDS ORDERED: VANCOMYCIN 2 GM in NA CHLORIDE 0.9% 500 ML IVPB ONE (17:00)
[2022-11-03] MEDS: NA CHLORIDE 0.9% 1,000 ML IV SCH (03:18)
[2022-11-03 04:07] LABS: Absolute Lymphocytes (CBC) 1.4 K/uL (0.7-4.9); Lymphocytes % 9.7 % (15.3-44.8); MCV 98.7 fL (80-100); MPV 7.7 fL (7.6-11.3); RBC Red Blood Cell Count 2.84 M/uL (4.33-5.43)
[2022-11-03 04:17] LABS: Potassium 3.5 mEq/L (3.5-5.1)
[2022-11-03] MEDS: INSULIN -REGULAR HUMAN 50 UNIT/0.5 ML ML SQ SCH ×4 (07:30→20:46)
[2022-11-03] MEDS ORDERED: CEFEPIME 2 GM VIAL ONE (07:49)
[2022-11-03] MEDS ORDERED: NA CHLORIDE 0.9% 100 ML ONE (07:56)
[2022-11-03] MEDS ORDERED: INSULIN DETEMIR 100 UNIT/ML SUBQ SCH (08:00)
[2022-11-03] MEDS: CEFEPIME 2 GM in NA CHLORIDE 0.9% 100 ML IV SCH ×2 (08:02→20:46)
[2022-11-03] MEDS: ATORVASTATIN 20 MG TAB PO SCH (08:03)
[2022-11-03] MEDS: HEPARIN 5000 UNIT/ML 1 ML VIAL SQ SCH ×2 (08:03→20:47)
[2022-11-03] MEDS: INSULIN GLARGINE 100 UNIT/ML SQ SCH (08:23)
[2022-11-03] MEDS: TIMOLOL MALEATE 0.5% OPTH SCH (09:00)
[2022-11-03] MEDS: OPTH OPTH SCH (09:00)
--- NOTE | 2022-11-03 15:06 | P.PN ---
Subjective Date of Service: 11/03/22 Chief Complaint: UTI, severe sepsis Patient has no new complaint. He has been tolerating his diet. No fever today. Physical Examination - Vital Signs Temperature: 99.0 F Blood Pressure: 113/60 Pulse: 71 Respirations: 16 Pulse Ox (%): 96 - Studies Microbiology Data (last 24 hrs): 10/31/22 22:13 Blood - Blood Blood Culture Gram Stain - Final 10/31/22 22:13 Blood - Blood Gram Stain - Final 10/31/22 22:13 Blood - Blood Gram Stain - Final Assessment And Plan - Plan Physical Exam General: Alert, In no apparent distress, Oriented x3 Neck: Supple, no elevated JVD. Respiratory: Clear to auscultation bilaterally, Normal air movement Cardiovascular: Regular rate/rhythm, Normal S1 S2 Gastrointestinal: Normal bowel sounds, No tenderness Musculoskeletal: No tenderness Integumentary: No rashes Neurological: Normal speech, Normal strength at 5/5 x4 extr. Plan Assessment: Severe sepsis secondary to UTI Diabetes mellitus type 2insulin-dependent with hyperglycemia Hypertension Plan: Severe sepsis secondary to UTI UA suggest UTI. CT chest negative for acute findings but does show cholelithiasis but no physical evidence of cholecystitis. Blood culture: Alpha strep. Urine culture: Alpha strep. Patient did not respond to IV Rocephin Continue IV cefepime and vancomycin until sensitivity result. Infectious disease consulted to assist with management. Repeat blood culture. Diabetes mellitus type 2insulin-dependent with hyperglycemia ACHS Accu-Chek, sliding scale insulin. Continue Lantus insulin. Hypertension Hold oral antihypertensives in the setting of sepsis. Patient is currently normotensive. DVT PPX: Lovenox Code status: Full Discharge Plan: Home
--- NOTE | 2022-11-03 16:08 | P.CNS ---
Date of Consult: 11/03/22 Reason for Consult: sepsis, bacteremia Chief Complaint: UTI, severe sepsis History of Present Illness: Patient is an 82-year-old male with history of insulin-dependent diabetes, dementia and hypertension who presented to the ED with complaints of fever and chills for the past 2 days. He was evaluated in the emergency department his labs were significant for leukocytosis white blood cell count 15.6 lactic acid 2.5 creatinine 1.54 sodium 132 glucose 271 urinalysis extremely turbid 4+ leuk esterase urine white blood cell greater than 50 urine red blood cell greater than 50. . He was admitted for severe sepsis, UTI. Allergies No Known Allergies Allergy (Verified 08/01/19 17:30) Home medications list reviewed: Yes Home Medications: Insulin Detemir [Levemir Flextouch] 28 units SUBQ BREAKFAST 01/05/15 Metformin HCl 1,000 mg PO DAILY 01/05/15 Atorvastatin Calcium 20 mg PO DAILY 08/01/19 Glipizide [Glipizide ER] 5 mg PO DAILY 08/01/19 Lisinopril [Zestril] 10 mg PO DAILY 08/01/19 Timolol 0.5% Opth [Timoptic 0.5% Opth*] 50 drops OPTH DAILY 08/01/19 Ciprofloxacin HCl [Cipro 500 MG Tablet] 500 mg PO BID #12 tab 08/06/19 Codeine/APAP [Tylenol W/Codeine #3 tab] 1 tab PO Q4HP PRN #30 tab 08/06/19 - Past Medical/Surgical History Diabetic: Yes -: DM -: Dementia -: Hypertension -: fell fm 7ft /broken pelvis 2000 Psychosocial/ Personal History: Lives at home with - Social History Alcohol use: No CD- Drugs: No Caffeine use: Yes Place of Residence: Home Review of Systems 10-point ROS is otherwise unremarkable General: Weakness Respiratory: SOB with Excertion Physical Examination Temp Pulse Resp BP Pulse Ox 99.0 F 71 16 113/60 96 11/03/22 15:07 11/03/22 15:07 11/03/22 15:07 11/03/22 15:07 11/03/22 15:07 General: Alert, In no apparent distress, Oriented x2 HEENT: Atraumatic, Normocephalic Neck: Supple, JVD not distended Respiratory: Clear to auscultation bilaterally, Normal air movement Cardiovascular: No edema, Normal pulses Gastrointestinal: Normal bowel sounds, Soft and benign Musculoskeletal: No clubbing, No swelling Integumentary: No rashes, No significant lesion Neurological: Normal speech, Normal tone, Normal affect, Dementia Laboratory Data - Reviewed Microbiology Data - Reviewed Imagings Data: - Reviewed Conclusions/Impression: Problem List Diabetes Mellitus Type II Hypertension Severe Sepsis Urinary Tract Infection Bacteremia Severe Sepsis Urinary Tract Infection Bacteremia - Blood cultures 10/31: Gram positive cocci - Urine culture 10/31: 3+ alpha streptococci - Leukocytosis (WBC 14.2) - Tmax 102.8 within the last 24 hours -Currently on Cefepime and Vancomycin (started 11/02) - Repeat blood cultures 11/03: pending Recommendations - Continue Cefepime and Vancomycin for now. - Awaiting final blood and urine culture reports - will adjust antibiotics as appropriate - Monitor WBC and fever trends - Nutritional support as needed ID will follow up and monitor patient closely. Case discussed with Martha Washington. Thank you Dr. Laguerre for consult.
[2022-11-03] MEDS: VANCOMYCIN 1.25 GM in NA CHLORIDE 0.9% 250 ML IVPB SCH (16:38)
[2022-11-03] MEDS: ACETAMINOPHEN 500 MG TAB PO PRN (17:32)
[2022-11-04 03:22] VITALS: O2SAT 97
[2022-11-04 03:33] LABS: Absolute Lymphocytes (CBC) 1.1 K/uL (0.7-4.9); Hematocrit 28.5 % (39.6-49.0); Lymphocytes % 9.2 % (15.3-44.8); MCV 99.3 fL (80-100); MPV 7.2 fL (7.6-11.3); RBC Red Blood Cell Count 2.87 M/uL (4.33-5.43)
[2022-11-04 03:45] LABS: Potassium 3.4 mEq/L (3.5-5.1)
[2022-11-04] MEDS: INSULIN -REGULAR HUMAN 50 UNIT/0.5 ML ML SQ SCH ×4 (07:30→21:00)
[2022-11-04] MEDS: ATORVASTATIN 20 MG TAB PO SCH (08:00)
[2022-11-04] MEDS: INSULIN GLARGINE 100 UNIT/ML SQ SCH (08:35)
[2022-11-04] MEDS: HEPARIN 5000 UNIT/ML 1 ML VIAL SQ SCH ×2 (08:35→21:26)
[2022-11-04] MEDS: OPTH OPTH SCH (08:37)
[2022-11-04] MEDS: TIMOLOL MALEATE 0.5% OPTH SCH (08:37)
[2022-11-04] MEDS: CEFEPIME 2 GM in NA CHLORIDE 0.9% 100 ML IV SCH ×2 (08:37→21:25)
--- NOTE | 2022-11-04 09:04 | P.PN ---
Date of Service: 11/04/22 Chief Complaint: fever, generalized weakness Subjective: Improving. No new complains. NAD. at bedside. No acute events reported overnight. Physical Examination Temp Pulse Resp BP Pulse Ox 97.9 F 69 16 123/59 L 97 11/04/22 08:00 11/04/22 08:00 11/04/22 08:00 11/04/22 08:00 11/04/22 08:00 General: Alert, In no apparent distress, Oriented x2 HEENT: Atraumatic, Normocephalic Neck: Supple, JVD not distended Respiratory: Clear to auscultation bilaterally, Normal air movement Cardiovascular: No edema, Normal pulses Gastrointestinal: Normal bowel sounds, Soft and benign Musculoskeletal: No clubbing, No swelling Integumentary: No rashes, No significant lesion Neurological: Normal speech, Normal tone, Normal affect, Dementia Laboratory Data - Reviewed Microbiology Data - Reviewed Imagings Data: - Reviewed Medication List Reviewed: Yes Conclusions/Impression: Problem List Diabetes Mellitus Type II Hypertension Severe Sepsis Urinary Tract Infection Bacteremia Severe Sepsis Urinary Tract Infection Bacteremia - Blood cultures 10/31: Gram positive cocci - Urine culture 10/31: 3+ alpha streptococci - Leukocytosis (WBC 14.2) - Tmax 99.9 within the last 24 hours -Currently on Cefepime and Vancomycin (started 11/02) - Repeat blood cultures 11/03: pending Recommendations - Continue Cefepime and Vancomycin for now. - Awaiting final blood and urine culture reports. Will adjust antibiotics as appropriate - Patient will require at least 2 weeks minimum of antibiotic for bacteremia - Monitor WBC and fever trends - Nutritional support as needed - Strict blood glucose control ID will follow up and monitor patient closely. Case discussed with Zina Washington
--- NOTE | 2022-11-04 12:31 | P.PN ---
Subjective Date of Service: 11/04/22 Chief Complaint: UTI, severe sepsis Patient denies any complaint He seen ambulating in the hallway. He is tolerating his diet. Physical Examination - Vital Signs Temperature: 97.9 F Blood Pressure: 123/59 Pulse: 69 Respirations: 16 Pulse Ox (%): 97 - Studies Microbiology Data (last 24 hrs): 10/31/22 22:13 Blood - Blood Aerobic Blood Culture - Final Enterococcus Durans 10/31/22 22:13 Blood - Blood Blood Culture Gram Stain - Final 10/31/22 22:13 Blood - Blood Anaerobic Blood Culture - Final Enterococcus Durans 10/31/22 22:13 Blood - Blood Gram Stain - Final 10/31/22 22:13 Blood - Blood Aerobic Blood Culture - Final Enterococcus Durans 10/31/22 22:13 Blood - Blood Anaerobic Blood Culture - Final No growth in 5 days. 10/31/22 22:13 Blood - Blood Gram Stain - Final Assessment And Plan - Plan Physical Exam General: Alert, In no apparent distress, Oriented x3 Respiratory: Clear to auscultation bilaterally, Normal air movement Cardiovascular: Regular rate/rhythm, Normal S1 S2 Gastrointestinal: Normal bowel sounds, No tenderness Musculoskeletal: No tenderness Integumentary: No rashes Neurological: Normal speech, Normal strength at 5/5 x4 extr. Plan Assessment: Severe sepsis secondary to UTI Diabetes mellitus type 2insulin-dependent with hyperglycemia Hypertension Plan: Severe sepsis secondary to UTI UA suggest UTI. CT chest negative for acute findings but did show cholelithiasis but no physical evidence of cholecystitis. Blood culture: Enterococcus. Sensitive to penicillin, fluoroquinolones, tetracycline. Resistant to Bactrim Urine culture: Alpha strep. Leukocytosis did not respond to IV Rocephin. Leukocytosis almost resolved. Continue IV cefepime and vancomycin until sensitivity result. Infectious disease is following. Outpatient antibiotics per infectious disease Repeat blood culture shows no growth. Diabetes mellitus type 2insulin-dependent with hyperglycemia ACHS Accu-Chek, sliding scale insulin. Continue Lantus insulin. Resume home antidiabetics. Hypertension Patient is currently normotensive. Hold antihypertensives. DVT PPX: Lovenox Code status: Full Discharge Plan: Home
[2022-11-04] MEDS: VANCOMYCIN 1.25 GM in NA CHLORIDE 0.9% 250 ML IVPB SCH (17:02)
[2022-11-04] MEDS: Mupirocin NASAL 2 APPL/1 GM TUBE NAS SCH (21:00)
[2022-11-05] MEDS: INSULIN -REGULAR HUMAN 50 UNIT/0.5 ML ML SQ SCH ×3 (07:30→16:10)
[2022-11-05] MEDS ORDERED: METFORMIN HCL 500 MG TAB PO SCH (08:00)
[2022-11-05] MEDS ORDERED: GLIPIZIDE S.A. 5 MG TAB PO SCH (08:00)
[2022-11-05] MEDS ORDERED: CEFEPIME 2 GM VIAL ONE (08:43)
[2022-11-05] MEDS ORDERED: NA CHLORIDE 0.9% 100 ML ONE (08:44)
[2022-11-05] MEDS: ATORVASTATIN 20 MG TAB PO SCH (08:59)
[2022-11-05] MEDS: INSULIN GLARGINE 100 UNIT/ML SQ SCH (08:59)
[2022-11-05] MEDS: CEFEPIME 2 GM in NA CHLORIDE 0.9% 100 ML IV SCH (09:00)
[2022-11-05] MEDS: OPTH OPTH SCH (09:00)
[2022-11-05] MEDS: TIMOLOL MALEATE 0.5% OPTH SCH (09:00)
[2022-11-05] MEDS: HEPARIN 5000 UNIT/ML 1 ML VIAL SQ SCH (09:01)
[2022-11-05] MEDS: Mupirocin NASAL 2 APPL/1 GM TUBE NAS SCH (09:02)
--- NOTE | 2022-11-05 09:24 | P.PN ---
Date of Service: 11/05/22 Chief Complaint: fever, generalized weakness Subjective: Improving. Patient in bed, A&Ox2. No acute events reported overnight. Denies any complaints. Physical Examination Temp Pulse Resp BP Pulse Ox 97.7 F 68 16 124/65 98 11/05/22 08:00 11/05/22 08:00 11/05/22 08:00 11/05/22 08:00 11/05/22 08:00 General: Alert, In no apparent distress, Oriented x2 HEENT: Atraumatic, Normocephalic Neck: Supple, JVD not distended Respiratory: Clear to auscultation bilaterally, Normal air movement Cardiovascular: No edema, Normal pulses Gastrointestinal: Normal bowel sounds, Soft and benign Musculoskeletal: No clubbing, No swelling Integumentary: No rashes, No significant lesion Neurological: Normal speech, Normal tone, Normal affect, Dementia. Right sided weakness. Laboratory Data - Reviewed Microbiology Data - Reviewed Imagings Data: - Reviewed Medication List Reviewed: Yes Conclusions/Impression: Problem List Diabetes Mellitus Type II Hypertension Severe Sepsis Urinary Tract Infection Bacteremia Anemia Severe Sepsis Urinary Tract Infection Bacteremia - Blood cultures 10/31: Enterococcus durans and Alpha streptococcus. - Enterococcus resistant to Bactrim and Cefazolin. - Urine culture 10/31: Enterococcus durans and Alpha streptococcus - WBC downtrending (WBC 14.2 -> 11.8- on 11/05) - No fever recorded in the past 24 hours -Currently on Cefepime and Vancomycin (started 11/02) - Repeat blood cultures 11/03: No growth to date Recommendations - Consider switch to Augmentin 875 PO Q12H x 2 weeks for enterococcus bact eremia. Will also cover strep - Monitor WBC and fever trends - Nutritional support as needed - Strict blood glucose control ID will follow up and monitor patient closely. Case discussed with Zina Washington
[2022-11-05] MEDS ORDERED: AMOX/K CLAV 875 MG TAB PO SCH (11:00)
[2022-11-05 13:12] VITALS: BP 127/64; TEMP 98.3
--- NOTE | 2022-11-05 14:49 | P.DS ---
Admission Date: 11/01/22 Discharge Date: 11/05/22 Disposition: ROUTINE DISCHARGE Discharge Condition: FAIR Reason for Admission: UTI, severe sepsis Brief History of Present Illness: 82-year-old male with history of insulin-dependent diabetes, dementia, hypertension presented to the emergency department with chief complaint of fever and chills. He was evaluated in the emergency department his labs were significant for leukocytosis white blood cell count 15.6 lactic acid 2.5 creatinine 1.54 sodium 132 glucose 271 urinalysis extremely turbid 4+ leuk esterase urine white blood cell greater than 50 urine red blood cell greater than 50. CT of the chest was performed which showed cholelithiasis, no acute chest findings. Patient with no abdominal tenderness LFTs within normal limits doubt cholecystitis. Blood and urine cultures obtained. He was admitted for severe sepsis and UTI. Hospital Course: Severe sepsis secondary to UTI UA suggested UTI. CT chest negative for acute findings but did show cho lelithiasis but no evidence of cholecystitis. Blood culture: Enterococcus. Sensitive to penicillin, fluoroquinolones, tetracycline. Resistant to Bactrim Urine culture: Enterococcus. Patient responded well to IV cefepime and vancomycin. Leukocytosis almost resolved Infectious disease assisted with management and further outpatient treatment with 2 weeks of oral Augmentin recommended Repeat blood culture shows no growth. Diabetes mellitus type 2insulin-dependent with hyperglycemia ACHS Accu-Chek, sliding scale insulin. Managed with Lantus insulin and home antidiabetics-metformin and glipizide Hypertension Patient was mostly normotensive. Held lisinopril during the hospital stay and resumed on discharge. Vital Signs/Physical Exam: Temp Pulse Resp BP Pulse Ox 98.3 F 68 16 127/64 98 11/05/22 12:00 11/05/22 12:00 11/05/22 12:00 11/05/22 12:11/05/22 12:00 General: Alert, In no apparent distress, Oriented x3 HEENT: Mucous membr. moist/pink Neck: JVD not distended Respiratory: Clear to auscultation bilaterally, Normal air movement Cardiovascular: No edema, Regular rate/rhythm, Normal S1 S2 Gastrointestinal: Normal bowel sounds, Soft and benign, Non-distended Musculoskeletal: No swelling Integumentary: No rashes, No cyanosis Neurological: Normal strength at 5/5 x4 extr Laboratory Data at Discharge: WBC 11.80 thou/uL (4.3-10.9) H 11/04/22 02:17 Hgb 9.5 g/dL (13.6-17.9) L 11/04/22 02:17 Hct 28.5 % (39.6-49.0) L 11/04/22 02:17 Plt Count 192 thou/uL (152-406) 11/04/22 02:17 PT 12.5 SECONDS (9.5-12.5) 10/31/22 22:13 INR 1.14 10/31/22 22:13 APTT 30.7 SECONDS (24.3-36.9) 10/31/22 22:13 Sodium 137 mEq/L (136-145) 11/04/22 02:17 Potassium 3.4 mEq/L (3.5-5.1) L 11/04/22 02:17 BUN 20 mg/dL (7-18) H 11/04/22 02:17 Creatinine 1.23 mg/dL (0.70-1.30) 11/04/22 02:17 Glucose 168 mg/dL (74-106) H 11/04/22 02:17 Total Bilirubin 0.5 mg/dL (0.2-1.0) 10/31/22 22:13 AST 10 U/L (15-37) L 10/31/22 22:13 ALT 17 U/L (16-61) 10/31/22 22:13 Alkaline Phosphatase 121 U/L (45-117) H 10/31/22 22:13 Home Medications: Insulin Detemir [Levemir Flextouch] 28 units SUBQ BREAKFAST 01/05/15 Metformin HCl 1,000 mg PO DAILY 01/05/15 Atorvastatin Calcium 20 mg PO DAILY 08/01/19 Glipizide [Glipizide ER] 5 mg PO DAILY 08/01/19 Lisinopril [Zestril] 10 mg PO DAILY 08/01/19 Timolol 0.5% Opth [Timoptic 0.5% Opth*] 50 drops OPTH DAILY 08/01/19 Amox/Clavulanate [Augmentin 875-125 Tab*] 875 mg PO BID #28 tab 11/05/22 New Medications: Amox/Clavulanate [Augmentin 875-125 Tab*] 875 mg PO BID #28 tab Diet: ADA Followup: Isidro Stewart MD [Primary Care Provider] - (Within 2 weeks) Time spent managing pt's care (in minutes): 37
[2022-11-05] MEDS ORDERED: VANCOMYCIN 1.5 GM in NA CHLORIDE 0.9% 500 ML IVPB SCH (17:00)
== END 2022-11-05 16:44 | disposition home or self-care (01) | DRG 872 ==
LOC: ER 21:26 → ERHOLD 11-01 00:35 → 2ND 11-01 08:45
PROVIDERS: ADMIT Hospitalist; ATTEND Internal Medicine
DX: A41.81 Sepsis due to Enterococcus (principal); N39.0 Urinary tract infection, site not specified; Z16.29 Resistance to other single specified antibiotic; R65.20 Severe sepsis without septic shock; F03.90 Unspecified dementia, unspecified severity, without behavioral disturbance, psychotic disturbance, mood disturbance, and anxiety; E11.65 Type 2 diabetes mellitus with hyperglycemia; Z79.4 Long term (current) use of insulin; Z28.311 Partially vaccinated for COVID-19; I10 Essential (primary) hypertension; K80.20 Calculus of gallbladder without cholecystitis without obstruction
CPT/HCPCS: 36415; 71045; 71250; 80048; 80053; 80202; 81001; 82947; 83605; 85025; 85610; 85730; 87040; 87077; 87086; 87088; 87186; 87205; 87804; 87811; 93005; 96365; 96366; 99285; J0692; J0696; J1644; J1815; J7030; J7040; J7050